=== PATIENT | female | born 1975 | race Caucasian/White ===

== ENCOUNTER 2018-07-23 14:02 | Emergency (ER) | payer MEDICAID ==
[2018-07-23] MEDS: KETOROLAC 60 MG INJ IM (14:49)
== END 2018-07-23 15:20 | disposition home or self-care (01) ==
LOC: FTE 14:02
DX: M25.511 Pain in right shoulder (principal); J45.909 Unspecified asthma, uncomplicated
CPT/HCPCS: 73030; 73030-RT; 81025; 96372; 99284-25